=== PATIENT | female | born 1990 | race Caucasian/White ===

== ENCOUNTER → 2017-12-11 15:01 | Outpatient (CLI) | payer OTHER, SELFPAY | DX: Z53.9 Procedure and treatment not carried out, unspecified reason (principal) ==

== ENCOUNTER → 2017-12-11 15:40 | Outpatient (CLI) | payer OTHER, SELFPAY ==
[2017-12-11 16:26] LABS: Appearance Urine UA CLEAR; Bilirubin Urine UA NEGATIVE (NEGATIVE); Color Urine UA YELLOW; Glucose Urine UA NEGATIVE (Normal); Ketones Urine UA NEGATIVE (NEGATIVE); Leukocyte Esterase Urine UA NEGATIVE (NEGATIVE); Nitrite Urine UA Negative (Negative); Occult Blood Urine UA NEGATIVE (Negative); Protein Urine UA NEGATIVE (Negative); Urobilinogen Urine UA 0.2 E.U./dL (0.2)
[2017-12-11 16:39] LABS: Add Manual Diff / Slide Review NO; Basophils Percent Auto 0.3 % (0-2); Eosinophils Percent Auto 0.5 % (2-4); Hematocrit 35.1 % (36-46); Hemoglobin 12.6 g/dL (12.0-16.0); Lymphocytes Percent Auto 32.7 % (25-40); Mean Corpuscular HGB Conc 35.9 % (30-36); Mean Corpuscular Hemoglobin 34.4 PG (26-34); Mean Corpuscular Volume 95.7 fL (80-100); Monocytes Percent Auto 9.5 % (3-14); Neutrophils Absolute Auto 2800 /uL (3000-5900); Platelet Count 276 X10^3/uL (150-400); Red Blood Cell Count 3.67 X10^6/uL (4.0-5.2); Red Cell Distribution Width 11.7 % (11.6-14.8); White Blood Cell Count 4.9 X10^3/uL (4.5-11.0)
[2017-12-11 18:22] LABS: HIV 1 and 2 Antibody NEGATIVE (NEGATIVE); Hepatitis B Surface Antigen NEGATIVE s/c (NEGATIVE); Rubella Antibody IgG 35.7 IU/mL (>15)
[2017-12-11 19:01] LABS: Hep C Virus Ab w/Reflex Quant NEGATIVE s/c (NEGATIVE)
[2017-12-13 16:03] LABS: HSV 2 IGG AB 2.73 index (< 0.90)
[2017-12-17 16:02] LABS: Rapid Plasma Reagin NON REACTIVE
== END ==
DX: Z34.01 Encounter for supervision of normal first pregnancy, first trimester (principal)
CPT/HCPCS: 36415; 80055; 81003; 86695; 86696; 86703; 86787; 86803; 86850; 86900; 86901; 87086

== ENCOUNTER → 2018-03-07 15:31 | Outpatient (CLI) | payer OTHER, SELFPAY ==
[2018-03-14 16:35] LABS: AFP, Serum 31.1 ng/mL; Calc Gestational Age 18.6; Cigarette Smoker N; Donated Egg NOT GIVEN; Donor Egg Age NOT GIVEN; Estriol, Free 1.18 ng/mL; Inhibin A, Dimeric 167 pg/mL; Maternal Weight 152 lbs; Number of Fetuses NOT GIVEN; Previous Pregnancy Down Syndro NOT GIVEN; hCG, MoM 1.19; hCG, Serum 26.5 IU/mL
== END ==
PROVIDERS: Visit Provider Specialist
DX: Z34.02 Encounter for supervision of normal first pregnancy, second trimester (principal)
CPT/HCPCS: 36415; 82105; 82677; 84702; 86336

== ENCOUNTER → 2018-03-26 12:38 | Outpatient (CLI) | payer OTHER, SELFPAY ==
--- NOTE | 2018-03-26 12:39 | DI.US.S_ITS ---
PROCEDURE: US OB >= 14 WEEKS FETUS INDICATIONS: 20 week anatomic survey OUTSIDE/PRIOR DATING DATA: Last menstrual period (LMP): Not available. LMP-based estimated date of delivery (AARON): Not available. First dating scan (date and location): 12/27/17. (By Dr. Lewis). Estimated date of delivery (AARON) from first dating scan: 08/02/18. TECHNIQUE: Real-time scanning was performed of the fetus, with image documentation and biometric measurements. Endovaginal scanning: Not needed for this study. COMPARISON: [facility], , OB >= 14 WEEKS FETUS, 03/07/2018, 15:18. FINDINGS: General: A single living intrauterine gestation is present. Presentation: Breech. Placenta: Placental position is posterior, without previa. Amniotic fluid index: 16.7 cm, normal range is 5-24 cm. heart rate: 137 beats per minute. Maternal cervical canal: 4.2 cm long. Normal lower limit is 2.5 cm. biometrics: Biparietal diameter: 5.5 cm, 22 weeks 6 days Head circumference: 20.7 cm, 22 weeks 5 days Abdominal circumference: 17.8 cm, 22 weeks 5 days Femur length: 3.7 cm, 21 weeks 6 days Estimated gestational age from initial scan: 21 weeks 4 days Composite gestational age from present scan: 22 weeks 4 days Estimated weight and percentile: 498 g, 84th percentile Measurement variability for biometric dating: +/- 7 days from 14 weeks to 15 weeks 6 days gestation, +/- 10 days from 16 weeks to 21 weeks 6 days gestation, +/- 2 weeks from 22 weeks to 27 weeks 6 days gestation, +/- 3 weeks for 28 weeks gestation or later. weight reference: 4500 g or EFW >90/95% is considered macrosomia or large for gestational age. EFW <10% is small for gestational age. EFW 5% or less is considered intra-uterine growth restriction. Anatomic survey: Neuro: Ventricles are non-dilated at less than 10 mm. Cisterna magna is normal at 3-11 mm. Cerebellum is normal in size and morphology. Nuchal skin fold: Normal at less than 6 mm between 14-21 weeks gestational age. Face: Nose and lips, facial profile are normal. Spine: No evidence for spina bifida. Heart: 4-chambered heart is present, with normal ventricular outflow tracts. Diaphragm: Diaphragm is intact. Stomach: Left-sided stomach is present. Kidneys: No hydronephrosis on the right, slight prominence of the left renal collecting system in the second trimester at 7 mm. Normal is less than 5 mm in 2nd trimester, less than 7 mm in 3rd trimester. Cord: 3-vessel cord has orthotopic insertion. Bladder: Normal in size. Extremities: All 4 extremities identified. IMPRESSION: 1. Appropriate interval growth. 2. The left renal collecting system measures 7 mm in the second trimester and thus is slightly above the upper limits of normal. If followup OB ultrasound is not performed in the third trimester documenting normal appearance of the collecting system of each kidney a renal ultrasound is recommended approximately 2 weeks after delivery to assess the renal collecting system appearance at that time. 3. Breech presentation at this time. Dictated by: Jared Troy M.D. on 03/26/2018 at 16:17 Approved by: Jared Troy M.D. on 03/26/2018 at 16:21
== END ==
PROVIDERS: Visit Provider Specialist
DX: Z34.92 Encounter for supervision of normal pregnancy, unspecified, second trimester (principal); Z3A.22 22 weeks gestation of pregnancy
CPT/HCPCS: 76811

== ENCOUNTER → 2018-04-18 15:04 | Outpatient (CLI) | payer OTHER, SELFPAY ==
[2018-04-18 16:34] LABS: Hematocrit 32.7 % (36-46); Hemoglobin 11.4 g/dL (12.0-16.0)
[2018-04-18 17:15] LABS: GTT (PREG) 1 Hour PP 50gm Dose 111 mg/dL (76-139)
== END ==
PROVIDERS: PCP Family Medicine; Visit Provider Specialist
DX: Z34.02 Encounter for supervision of normal first pregnancy, second trimester (principal); Z3A.25 25 weeks gestation of pregnancy
CPT/HCPCS: 36415; 82950; 85014; 85018; 86850

== ENCOUNTER → 2018-07-08 12:37 | Outpatient (CLI) | payer OTHER, MEDICAID, SELFPAY ==
[2018-07-09 08:56] LABS: Strep Grp B PCR NEG for Grp B Strep
== END ==
PROVIDERS: PCP Family Medicine; Visit Provider Specialist
DX: Z3A.36 36 weeks gestation of pregnancy (principal)
CPT/HCPCS: 87653

== ENCOUNTER 2018-07-31 20:31 | Inpatient (IN) | payer OTHER, MEDICAID, SELFPAY ==
[2018-07-31 21:18] VITALS: BP 116/80
[2018-07-31] MEDS: miSOPROStol 25 MCG TABLET VAG (21:55)
[2018-07-31] MEDS: CALCIUM CARBONATE 500 MG TAB 1000 MG PO (22:11)
[2018-07-31 22:28] LABS: Add Manual Diff / Slide Review NO; Basophils Absolute Auto 0 /uL (0-100); Basophils Percent Auto 0.3 % (0-2); Eosinophils Absolute Auto 0 /uL (0-450); Eosinophils Percent Auto 0.4 % (2-4); Hematocrit 35.3 % (36-46); Hemoglobin 12.5 g/dL (12.0-16.0); Lymphocytes Absolute Auto 2500 /uL (1100-4500); Lymphocytes Percent Auto 25.6 % (25-40); Mean Corpuscular HGB Conc 35.5 % (30-36); Mean Corpuscular Hemoglobin 34.6 PG (26-34); Mean Corpuscular Volume 97.4 fL (80-100); Monocytes Absolute Auto 800 /uL (0-900); Monocytes Percent Auto 8.6 % (3-14); Neutrophils Absolute Auto 6400 /uL (1500-7000); Neutrophils Percent Auto 65.1 % (50-75); Platelet Count 246 X10^3/uL (150-400); Red Blood Cell Count 3.63 X10^6/uL (4.0-5.2); Red Cell Distribution Width 12.5 % (11.6-14.8); White Blood Cell Count 9.9 X10^3/uL (4.5-11.0)
[2018-08-01] MEDS: LACTATED RINGERS 1,000 ML 100 ML IV ×2 (01:21→04:09)
[2018-08-01] MEDS: ONDANSETRON 4 MG/2 ML INJ IV (04:09)
--- NOTE | 2018-08-01 07:31 | P.HPOB_ITS ---
OB HPI Date/Time Date of admission: 07/31/18 Date Patient Seen: 08/01/18 Time Patient Seen: 07:29 History of Present Condition Chief complaint: OBSERVATION OF LABOR : 1 Para: 0 Estimated Date of Delivery: 07/31/18 Estimated Gestational Age (weeks): 40 Narrative: Tamia Schmidt is a 28 year old female admitted with spontaneous rupture membranes not in active labor History of Present care: good care, initiated at week # (9), number of visits (12) and pounds weight gain (42) Dating criteria: LMP confirmed by 1st trimester US Ultrasounds: abnormal US findings (Mild increased kidney collecting system) Obstetrical complications: none Medical complications: none Preadmission Labs Blood type: A (-) negative -: Antibody screen: negative, GBS status: negative, HBsAG: negative, HIV: negative, HSV 1: negative, HSV 2: positive and RPR/VDLR: negative -: Rubella: immune HCAB: negative Quad screen: Normal 1 hr GTT: 111 Evaluation Evaluation Baseline heart rate: 140 Variability: Moderate (11-25) monitor accelerations: Present monitor decelerations: Absent Contraction Frequency (minutes): 3 Uterine Contraction Intensity: Moderate Category of Tracing: I Laboratory results: Laboratory Tests 07/31/18 07/31/18 22:00 22:00 WBC 9.9 RBC 3.63 L Hgb 12.5 Hct 35.3 L MCV 97.4 MCH 34.6 H MCHC 35.5 RDW 12.5 Plt Count 246 Neut % (Auto) 65.1 Lymph % (Auto) 25.6 Rhea % (Auto) 8.6 Eos % (Auto) 0.4 L Baso % (Auto) 0.3 Neut # (Auto) 6400 Lymph # (Auto) 2500 Rhea # (Auto) 800 Eos # (Auto) 0 Baso # (Auto) 0 Blood Type A Negative Antibody Screen Negative Non-invasive Membranes Rupture Test: positive [facility] Social History Smoking Status: Never smoker Meds Home Medications Medication Instructions Recorded Confirmed Type Double Electric Breast Pump #1 ea 06/10/18 06/10/18 Rx Allergies Allergy/AdvReac Type Severity Reaction Status Date / Time No Known Drug Allergies Allergy Verified 07/31/18 21:17 Review of Systems Review of Systems No signs or symptoms of preeclampsia. Good movement. All systems reviewed & are unremarkable except as noted in HPI and below Exam Vital Signs (past 8 hours): Blood pressure 96/54, pulse of 115, temperature 37.3? Narrative Exam Narrative: HEENT exam within normal limits. Heart is regular rate and rhythm no S3-S4 or murmurs. Lungs are clear to auscultation and percussion. Abdomen is gravid. Infant is vertex. Trace edema. DTRs are normal. Objective Labs Result Diagrams: 07/31/18 22:00 Labs: Laboratory Results - last 24 hr 07/31/18 07/31/18 22:00 22:00 WBC 9.9 RBC 3.63 L Hgb 12.5 Hct 35.3 L MCV 97.4 MCH 34.6 H MCHC 35.5 RDW 12.5 Plt Count 246 Neut % (Auto) 65.1 Lymph % (Auto) 25.6 Rhea % (Auto) 8.6 Eos % (Auto) 0.4 L Baso % (Auto) 0.3 Neut # (Auto) 6400 Lymph # (Auto) 2500 Rhea # (Auto) 800 Eos # (Auto) 0 Baso # (Auto) 0 Blood Type A Negative Antibody Screen Negative Assessment and Plan (1) 40 weeks gestation of : Current visit: Yes Status: Acute Patient is term with spontaneous rupture membranes. She arrived on Labor and delivery not in active labor so received Cytotec. She is now in active labor and received an epidural catheter for pain control. 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 Plan: Plan: Anticipate vaginal delivery.
[2018-08-01] MEDS: OXYTOCIN 10 UNIT/ML VIAL IM (10:15)
--- NOTE | 2018-08-01 11:43 | PM.OBPRVD ---
Delivery date: 08/01/18 L&D Laceration Description: Periurethral - 1st Degree Estimated blood loss (mL): 300 Anesthesia type: Epidural Narrative: Patient pushed to deliver a viable male with epidural anesthesia. Patient pushed for approximately 2 hr of time. Baby made good descent through the canal. During stage II of labor. Patient had some late and variable decelerations with head compression consistent with a nuchal cord. The delivery of the head. Baby was found to be in occiput anterior position. At the delivery of the head there was a nuchal cord which was reduced. Then had delivery of the shoulders without difficulty. Baby was placed on the mother's abdomen. Baby had spontaneous cry. Then had delivery of an intact placenta three-vessel cord. Inspection of the vagina. Patient had a first-degree periurethral tear on the left and right side well which was repaired with 3 0 chromic suture in a simple interrupted fashion. Patient was given 10 units of IM Pitocin after the delivery of the baby. Fundus was firm. Estimated blood loss was 300 cc. Afterwards mom and baby were resting comfortably.
[2018-08-01] MEDS: DERMOPLAST SPRAY 20% 60 ML 1 SPRAY TOP (14:16)
[2018-08-01] MEDS: IBUPROFEN 600 MG TABLET PO ×2 (15:00→21:32)
[2018-08-01] MEDS: OXYCODONE/ACETAMINOPHEN 5/325 TABLET 1 TAB PO ×2 (15:01→21:31)
[2018-08-02 07:22] LABS: Hematocrit 31.4 % (36-46); Hemoglobin 11.1 g/dL (12.0-16.0)
[2018-08-02 10:24] VITALS: TEMP 36.6
[2018-08-02] MEDS: PRENATAL VIT,CALC/IRON/FOLIC 1 TABLET 1 TAB PO (10:24)
[2018-08-02] MEDS: DOCUSATE 250 MG CAPSULE PO (10:24)
[2018-08-02] MEDS: IBUPROFEN 600 MG TABLET PO (10:24)
--- NOTE | 2018-08-02 13:12 | PM.DS.1 ---
History of Present Illness Date Patient Seen: 08/02/18 Time Patient Seen: 13:13 Chief complaint: LABOR AND DELIVERY Narrative: s/p vaginal delivery Discharge Providers Date of admission: 07/31/18 20:31 Primary care physician: Dilan Rai MD Consults: 07/31/18 21:14 Consult to Anesthesiology Urgent Comment: Consulting Provider: Anesthesiologist Reason for consultation: Epidural Has provider been notified: No 08/01/18 13:54 Consult to Dark Room Attendant Routine Comment: Discharge provider: Janeen Lewis MD Discharge Date: 08/02/18 Summary Status at Discharge Functional status at discharge: independent ambulation Overall status at discharge: patient is progressing back to baseline Time Spent with Patient Less than 30 minutes Exam Vital Signs (past 8 hours): Blood pressure 114/68, pulse of 85, temperature 98.1?- 08/02/18 10:24 Temperature 98 F Narrative Exam Narrative: HEENT exam within normal limits. Lungs are clear to auscultation percussion. Heart is regular rate and rhythm no S3-S4 or murmurs. Breast exam does not reveal any lesions. Abdomen is soft, nontender. Uterus is firm, at U, nontender. Minimal lochia. Extremities without edema and nontender. Objective Labs Result Diagrams: 08/02/18 06:38 Labs: Laboratory Results - last 24 hr 08/02/18 06:38 Hgb 11.1 L Hct 31.4 L Discharge Plan Discharge Plan Patient Disposition: Home Discharge Med Rec/Prescriptions Prescriptions: No Action Double Electric Breast Pump Qty: 1 RF: 0 Follow up/Referrals: Dilan Rai MD [Primary Care Provider] - None Janeen Lewis MD [Physician] - 1 Month (Pt has a post follow up appointment with on 08/29/2018 @ 1030) Provider Discharge Instructions Diet: Regular Activity: nothing in Vagina for 4 weeks Skin/Wound/Dressing Care Report to your healthcare provider any signs of infection, such as:: chills, fever and increased pain Visit Report/Discharge Packet Instructions: DI for Heart Failure Stand Alone Forms: Discharge: Care Visit Report Forms: Congestive Heart Failure, Stroke Signs & Symptoms Discharge Data Primary Care Provider: Dilan Rai Attending Provider: Janeen Lewis Admit Date/Time: 07/31/18 20:31 Discharges patient from system. Discharge Date/Time: 08/02/18 13:45
[2018-08-02 13:14] VITALS: BP 114/68; PULSE 85; RESP 16; TEMP 36.7
== END 2018-08-02 13:45 | disposition home or self-care (01) | DRG 560 ==
PROVIDERS: Family Medicine; Admitting Provider Obstetrics & Gynecology; PCP Family Medicine; Visit Provider Specialist
DX: O42.02 Full-term premature rupture of membranes, onset of labor within 24 hours of rupture (principal); Z3A.40 40 weeks gestation of pregnancy; Z37.0 Single live birth; O69.1XX0 Labor and delivery complicated by cord around neck, with compression, not applicable or unspecified; O70.0 First degree perineal laceration during delivery
CPT/HCPCS: 01967; 36415; 59050; 59200; 59409; 85014; 85018; 85025; 86850; 86900; 86901; G0379; J2405; J2590; J3010